=== PATIENT | male | born 1995 | race Caucasian/White ===

== ENCOUNTER 2017-01-19 06:08 | Inpatient (IN) ==
[2017-01-19] MEDS ORDERED: ONDANSETRON 4 MG/2 ML VIAL IV STA (06:47)
[2017-01-19] MEDS ORDERED: HYDROmorphone 2 MG/1 ML VIAL IV STA (06:47)
--- NOTE | 2017-01-19 07:02 | EKG Report ---
Stationary ECG Study [facility] ER Test Date: 01/19/2017 6:59:49 AM Pat Name: CAMDEN EID Department: Room: Gender: M On Site Coordinator: : 1995 Requested by: Ifeoma Andrade Order Number: [id number] Reading MD: ROEL CABALLERO Intervals [place] Rate: 54 P: 50 [place]: 150 QRS: 69 QRSD: 108 T: 39 QT: 428 QTc: 414 Interpretive Statements SINUS BRADYCARDIA POSSIBLE RIGHT VENTRICULAR CONDUCTION DELAY PEAKED T WAVES OF UNKNOWN SIGNIFICANCE Electronically Signed On 01-19-17 16:16:01 CDT by ROEL CABALLERO [email or web address]
[2017-01-19] MEDS ORDERED: ONDANSETRON 4 MG/2 ML VIAL ONE (07:14)
[2017-01-19] MEDS ORDERED: HYDROmorphone 2 MG/1 ML VIAL ONE (07:14)
[2017-01-19 07:17] LABS: Basophils # 0.1 10*3/uL (0.0-0.2); Basophils % 0.5 % (0.0-0.8); Eosinophils # 0.1 10*3/uL (0.0-0.87); Eosinophils % 0.5 % (0.00-10.9); Hematocrit 45.8 VOL% (42.0-52.0); Hemoglobin 15.9 GM/DL (14.0-18.0); Immature Granulocytes % 0.3 %; Immature Granulocytes Absolute 0.06 #; Lymphocytes # 1.9 10*3/uL (1.4-4.0); Lymphocytes % 10.2 % (21.2-54.2); Mean Corpuscular HGB Conc 34.7 GM/DL (32-36); Mean Corpuscular Hemoglobin 28 PG (27-34); Mean Corpuscular Volume 80.1 FL (87-102); Mean Platelet Volume 9.5 FL (9.6-12.0); Monocytes # 1.2 10*3/uL (0.11-0.8); Monocytes % 6.3 % (1.7-12.7); Neutrophils # 15.2 10*3/uL (1.4-7.4); Neutrophils % 82.2 % (38.7-73.9); Platelet Count 334 T/CUMM (130-400); Red Blood Count 5.72 MC/CUMM (3.8-5.5); Red Cell Distribution Width 12.8 % (9.3-17.3); White Blood Count 18.5 T/CUMM (4-12)
[2017-01-19 07:19] LABS: Apearance,Urine CLEAR (Clear); Bilirubin,Urine Negative (Negative); Blood, Urine Small mg/dL (Negative); Glucose,Urine (UA) Negative (Negative); Ketones,Urine Negative (Negative); Mucus,Urine Occasional /LPF (Occasional); Nitrite,Urine Negative (Negative); Protein,Urine Negative; RBC,Urine <1 /HPF (0-4); Urine Color Yellow (Yellow); Urine Specific Gravity 1.023 (1.001-1.035); Urine Urobilinogen < 2.0 EU/DL (0.2-1.0); WBC,Urine <1 /HPF (0-6)
[2017-01-19] MEDS ORDERED: cefTRIAXone 1,000 MG in SODIUM CHLORIDE 0.9% 100 ML IV STA (07:28)
--- NOTE | 2017-01-19 07:31 | Emergency Department Note ---
Anastasia Magallanes Brittany, am scribing for, and in the presence of, Ifeoma Andrade DO 06: 48. IRaymond Debra, DO, personally performed the services described in this documentation, ascribed by Gabriella Oconnor in my presence, and it is both accurate and complete 731 . Arrival - Arrival Chief Complaint: Abdominal / Flank Pain Stated Complaint: back/upper stomach cramps ED Nursing Triage Note: Patient to triage with c/o ABD/back pain that started around 0500 this morning and woke him from his sleep. Patient c/o increased belching and has dry heaved. Patient was in [facility] 2 weeks ago and was diagnosed with gastroenteritis and has been taking ABX but patient states this pain feels different. Mode of Arrival: Ambulatory Limitations: No Limitations Source: Patient Time Seen by Provider: 01/19/17 06:38 - History of Present Illness HPI Narrative: This is sa 21 y/o white male,who presents to the ED with c/o abdominal pain which started at 0500 this morning. He states he was awoken from sleep when the pain started. He states the pain radiates into his back. He denies a fever, chills, nausea, vomiting or SOB. He states he ate at [employer] last night and had a burger and then ate chicken afterwards. He denies any positional movement relief. He denies any increasing pain factors. Pt was in [facility] 2 weeks ago and was Dx with Gastroenteritis and has been taking ABX, although upon exam pt and family members did not mention this. Pt has no other complaints/pain in the ED at this time. Pt denies a PMHx. Pt denies a surgical Hx. Pt denies a family medical Hx. Pt denies a social Hx. Onset (ago): hour(s) (Started at 0500 this morning) Consistency: constant Severity: moderate Allergies/Adverse Reactions: Allergies Allergy/AdvReac Type Severity Reaction Status Date / Time No Known Allergies Allergy Unverified 01/19/17 06:19 Review of System - Review of System 12 point system: reviewed and no additional remarkable complaints except as stated - Review of System Constitutional: Absent: chills, fever Cardiovascular: Absent: dyspnea on exertion Gastrointestinal: Present: abdominal pain. Absent: nausea, vomiting Medical,Surgical,& Family Hx - Social History Smoking Status: Never smoker Frequency of Alcohol Use: None Type of Drug Use: None Exam Vital Signs: Vital Signs Temperature 97.5 F L 01/19/17 06:55 Pulse Rate 62 01/19/17 09:00 Respiratory Rate 14 01/19/17 08:30 Blood Pressure 121/60 01/19/17 09:00 O2 Sat by Pulse Oximetry 96 01/19/17 09:00 - General General appearance: alert, in no apparent distress - Head Head exam: Present: atraumatic, normocephalic, normal inspection - Eye Eye exam: Present: normal appearance, PERRL, EOMI. Absent: scleral icterus, conjunctival injection, nystagmus, miosis, mydriasis - ENT ENT exam: Present: normal exam, normal oropharynx, mucous membranes moist, TM's normal bilaterally, normal external ear exam - Neck Neck exam: Present: normal inspection, full ROM, trachea midline. Absent: tenderness, meningismus, lymphadenopathy, thyromegaly - Chest Chest inspection: Present: symmetric chest wall rise, tenderness (Left chest tenderness). Absent: rash, abscess - Respiratory Respiratory exam: Present: normal lung sounds bilaterally. Absent: prolonged expiratory phase, rales, respiratory distress, rhonchi, stridor, wheezes - Cardiovascular Cardiovascular exam: Present: regular rate, normal rhythm, normal heart sounds. Absent: murmur, rubs, gallop, clicks, JVD - Abdominal Exam Abdominal exam: Present: soft, normal bowel sounds. Absent: distention, tenderness, guarding, rebound, rigidity - Rectal Exam Rectal exam: Present: deferred - Extremities Exam Extremities exam: Present: normal inspection, full ROM, normal capillary refill. Absent: tenderness, pedal edema, joint swelling, calf tenderness - Back Exam Back exam: Present: tenderness (Diffsue upper back tenderness starting at T8 and goes to T10). Absent: muscle spasm, rashes - Neurological Exam Neurological exam: Present: alert, oriented X3, CN II-XII intact. Absent: motor sensory deficit - Psychiatric Psychiatric exam: Present: normal affect, normal mood. Absent: depressed, agitated, anxious, flat affect, manic - Skin Skin exam: Present: warm, dry, intact, normal color. Absent: rash, cyanosis, diaphoresis, erythema, pallor, mottled Course Course Narrative: spoke with Yocasta, who will admit pt to hospitalist Results - Labs CBC & BMP: 01/19/17 06:58 01/19/17 06:58 Lab Results: I have reviewed the patients labs Labs: Laboratory Tests 01/19/17 01/19/17 06:58 06:58 WBC 18.5 H RBC 5.72 H Hgb 15.9 Hct 45.8 MCV 80.1 L MCH 28 MCHC 34.7 RDW 12.8 Plt Count 334 MPV 9.5 L Neut % (Auto) 82.2 H Lymph % (Auto) 10.2 L [place] % (Auto) 6.3 Eos % (Auto) 0.5 Baso % (Auto) 0.5 Neut # (Auto) 15.2 H Lymph # (Auto) 1.9 [place] # (Auto) 1.2 H Eos # (Auto) 0.1 Baso # (Auto) 0.1 Immature Gran % 0.3 Nucleated RBC % 0.0 Immature Gran # 0.06 Nucleated RBCs # 0.00 Immature Plt Fraction 0.0 Urine Color Yellow Urine Appearance Clear Urine pH 6.0 Ur Specific [place] 1.023 Urine Protein Negative Urine Glucose (UA) Negative Urine Ketones Negative Urine Blood Small Urine Nitrate Negative Urine Bilirubin Negative Urine Urobilinogen < 2.0 H Urine Leukocytes Negative Urine RBC <1 Urine WBC <1 Urine Mucus Occasional Ur Culture Indicated? Not indicated - EKG EKG results: interpreted by LEYDA FERNANDEZ - Diagnostic Findings Procedure: Chest x-ray: report reviewed by me (Nothing acute. ), CT Abdomen and Pelvis: report reviewed by me (Borderline to minimally enlarged ileocolic as well as mesenteric root lymph nodes are persent. This finding alone is a nonspecific finding and could reflect evidence of mesenteric adenitis as a diagnosis of exclusion. ) Disposition Clinical Impression: Mesenteric adenitis Case discussed with: patient, patient's family Disposition: Still a Patient Condition: Stable Time of Disposition: 09:29
[2017-01-19] MEDS ORDERED: cefTRIAXone 1,000 MG VIAL ONE (07:37)
[2017-01-19] MEDS ORDERED: SODIUM CHLORIDE 0.9% 100 ML IV ONE (07:37)
[2017-01-19 07:42] LABS: Albumin 4.2 G/DL (3.4-5.0); Bilirubin,Total 1.9 MG/DL (0.2-1.0); Calcium 9.8 MG/DL (8.5-10.1); Osmolality,Calculated 277.5 MOS/KG (273-304); Potassium 3.8 MMOL/L (3.5-5.1); Total Protein 7.6 G/DL (6.4-8.3)
[2017-01-19 08:18] LABS: Lactic Acid 1.3 MMOL/L (0.4-2.0)
--- NOTE | 2017-01-19 08:31 | CT Report ---
CT abdomen pelvis wo/w con Indication: Generalized abdominal pain. Comparison: None. Technique: CT of the abdomen and pelvis was performed prior to and following the administration of intravenous contrast. The CT examination was performed using one or more of the following dose reduction techniques: Automatic exposure control, adjustment of the mA and kV according to patient size, or iterative reconstruction techniques. Findings: Lower chest: No acute findings are noted within the lower chest. Liver: No mass lesions or acute findings are demonstrated. Gallbladder: The gallbladder demonstrates no significant abnormality. Spleen: Spleen is normal in size and appearance. Pancreas: Pancreas demonstrates no significant abnormality. Adrenal glands: The adrenal glands demonstrate no significant abnormalities. Kidneys: The kidneys demonstrate no significant abnormalities. Aorta: The aorta demonstrates no significant abnormality. Inferior vena cava: The inferior vena cava demonstrates no significant abnormality. Lymph nodes: Enlarged ileocolic lymph nodes are demonstrated. The largest of these measures 8.5 mm axial image #113 and 7.2 mm axial image #108. Additional somewhat more cephalad lymph nodes measuring 7.4 mm short axis dimension are present on image #99. Additional minimal adenopathy of the mesenteric root is present. Stomach and bowel: The stomach, duodenum, small bowel, appendix, and large bowel demonstrate no significant abnormalities. Intrapelvic contents: Demonstrate no significant abnormalities. Skeletal structures: The imaged bony structures of the lumbar spine, lower chest, pelvis, proximal femurs demonstrate no acute findings. Soft tissues and muscular structure of the body wall: Demonstrate no significant abnormalities. Impression: 1. Borderline to minimally enlarged ileocolic as well as mesenteric root lymph nodes are present. This finding alone is a nonspecific finding and could reflect evidence of mesenteric adenitis as a diagnosis of exclusion. 01/19/2017 8:25 AM PROCEDURE INTERPRETED AT [facility] DEPARTMENT OF RADIOLOGY Final Report Signed by: Dr. Alejandro Roa
--- NOTE | 2017-01-19 08:38 | XRay Report ---
XR chest 2V Indication: Back and chest pain. Comparison: None. Technique: PA and lateral chest x-ray was performed. Findings: Heart size, mediastinal contour, and hilar structures demonstrate no significant abnormalities. The lung parenchyma is clear. Bones and soft tissues demonstrate no significant abnormalities. Impression: 1. No active cardiopulmonary disease. 01/19/2017 8:35 AM PROCEDURE INTERPRETED AT [facility] DEPARTMENT OF RADIOLOGY Final Report Signed by: Dr. Alejandro Roa
[2017-01-19] MEDS ORDERED: ONDANSETRON 4 MG/2 ML VIAL IV PRN (09:16)
[2017-01-19] MEDS ORDERED: MORPHINE 2 MG/1 ML SYRINGE IV PRN (09:16)
[2017-01-19] MEDS ORDERED: POTASSIUM CHLORIDE RIDER 10 MEQ in PREMIX 1 EACH IV PRN (09:16)
[2017-01-19] MEDS ORDERED: MAGNESIUM SULF RIDER 4 GM in PREMIX 1 EACH IV PRN (09:16)
[2017-01-19] MEDS ORDERED: MAGNESIUM SULF RIDER 2 GM in PREMIX 1 EACH IV PRN (09:16)
[2017-01-19 09:42] LABS: Phosphorous 2.6 MG/DL (2.5-4.9)
[2017-01-19] MEDS ORDERED: ACETAMINOPHEN 325 MG TABLET PO PRN (09:54)
--- NOTE | 2017-01-19 10:08 | Hospitalist History & Physical ---
Assessment and Plan - Time spent with patient Time spent with patient: Greater than 30 minutes (1) Mesenteric adenitis Status: Acute Assessment and plan: Admit to Hospital Services. Start IV fluids. Start Antibiotic therapy. Order PRN medications pain management. Anti-nausea medications ordered for developed any developing of nausea. Will repeat labs in a.m. Will discuss further with Dr Trevizo for recommendations of care. Current Visit: Yes History of Present Illness Chief complaint: abdominal pain generalized History of present illness: Mr. Yee is a pleasant 21 year old white male presented to [facility] ED for further evaluation of generalized abdominal pain with onset around 0500 this a.m. without vomiting. PMHx significant for recent (2 weeks ago) visit to [facility] and was diagnosed with Gastroenteritis and placed on antibiotic therapy, almost completed (1 tablet left to take). He reports being awoken this a.m. with pain more upper left quadrant area but generalized and radiated to the back. He denies fever, chills, vomiting or shortness of breath. He denies an social history. He denies surgical history. ED labs completed and noted WBC 18.5 and total bilirubin 1.90, all other labs unremarkable. Urine negative. CXR Impression: No active cardiopulmonary disease and CT of ABD/ Pelvis completed: Impression: Borderline to minimally enlarged ileocolic as well as mesenteric root lymph nodes are present. This finding alone is a nonspecific finding and could reflect evidence of mesenteric adenitis as a diagnosis of exclusion. NO PCP. After discussion with Dr Andrade in the ED and Dr Trevizo with Hospitalist Medicine, It was agreed to admit patient and further evaluate and treat. No home medications other than the Cipro he was on (almost completed/ 1 tablet left to take) for reconciliation. Home Medications Medication Instructions Recorded Confirmed Type Ciprofloxacin HCl [Ciprofloxacin 500 mg PO Q12H 01/19/17 01/19/17 History Tab] Allergies Allergy/AdvReac Type Severity Reaction Status Date / Time No Known Allergies Allergy Unverified 01/19/17 06:19 Medical,Surgical,& Family Hx - Social History Smoking Status: Never smoker Frequency of Alcohol Use: None Type of Drug Use: None Marital Status: Single Lives With:: Parent Functional capacity: independent ambulation Review of systems: ROS completed and pertinent negatives and positives in HPI. Exam - Constitutional Vitals: Period Temp Pulse Resp BP Sys/Maldonado Pulse Ox Last 24 Hr 97.5 F-97.5 F 55-72 14-20 113-147/58-82 96-99 General appearance: normal weight, no acute distress - Head Head exam: Present: normal inspection - Eye Eye exam: Present: EOMI Pupils: Present: RENU - Neck Neck exam: Present: normal inspection - Respiratory Respiratory exam: Present: clear to auscultation bilaterally. Absent: wheezes - Cardiovascular Cardiovascular exam: Present: regular rate and rhythm - GI/Abdominal GI/Abdominal exam: Present: normal bowel sounds, tenderness (slight tenderness all over but more upper left quadrant), soft. Absent: firm, guarding, rebound - Extremities Exam Extremities exam: Present: full ROM. Absent: edema - Neurological Exam Neurological exam: Present: alert, oriented X3 - Psychiatric Psychiatric exam: Present: normal affect, normal mood. Absent: agitated, anxious - Skin Skin exam: Present: normal color, warm, dry Results - Labs CBC & BMP: 01/19/17 06:58 01/19/17 06:58 Lab Results: I have reviewed the past 24 hour labs - EKG EKG results: interpreted by ERMD - Diagnostic Findings Procedure: Chest x-ray: report reviewed by me (no acute cardiopulmonary disease) , CT Abdomen and Pelvis: report reviewed by me (borderline to minimally enlarged ileocolic asa well as mesenteric root lymph nodes are present, this finding alone is a nonspecific finding and could reflect evidence of mesenteric adenitis as a diagnosis of exclusion)
[2017-01-19] MEDS: SODIUM CHLORIDE 0.9% 1,000 ML IV SCH ×2 (11:07→22:06)
[2017-01-19] MEDS: CIPROFLOXACIN INJ 400 MG in PREMIX 1 EACH IV SCH ×2 (11:10→22:06)
[2017-01-19] MEDS: metroNIDAZOLE INJ 500 MG in PREMIX 1 EACH IV SCH ×2 (12:38→17:06)
--- NOTE | 2017-01-19 13:47 | Gastrointestinal Consult Note ---
Assessment and Plan (1) Gastroenteritis presumed infectious Status: Acute Assessment and plan: The patient has had trip to [facility] and has likely ingested any 1 of a number of organisms that would produce the symptoms that he is having currently. I see that stool cultures and standard C. difficile have been checked along with fecal leukocytes. I will go ahead and write for ova and parasite checks 3 to increase her yield. The patient sounds like they were started on Cipro but never Flagyl. Agree with use of both these medications although I personally would use Augmentin as I do not believe he is seen beta- lactam resistant penicillin yet. He is already failed a course of Cipro from what I gather. I will check the patient's stool for Entamoeba histolytica/ worms and other parasites. We will check a serology for Entamoeba histolytica and watch the patient's indirect bilirubin to make sure this is elevated. Patients with E histolytica can develop liver abscesses. I will hold off on making the diagnosis of mesenteric adenitis as this usually implies that there are multiple lymph nodes greater than 1 cm in size and from what I read in the CT scan this patient's lymph nodes are all subcentimeter. Unfortunately have little to offer the patient in order to make him feel better. This is simply infectious disease process that he is going to have to get better on his own from. He does not have evidence of inflammatory bowel disease on CT scanning, although we may check him for this down the road if he continues to have problems despite current regimen. Current Visit: Yes (2) Diarrhea Status: Acute Assessment and plan: Patient's diarrhea is really quite low-grade. Again we await the ova and parasites as well as the addition of Flagyl to the patient's medication regimen. Again I would strongly consider using Augmentin instead of Cipro as this has failed already. Patient may benefit from probiotics once the initial illness has been treated. This may help keep him from lapsing over to diarrhea predominant irritable bowel syndrome. Once infectious etiologies are ruled out patient may benefit from Colestid or other bowel thickening agents. Current Visit: Yes History of Present Illness Chief complaint: Nausea, abdominal pain, mild diarrhea History of present illness: Mr. Yee is a 21 year old male who was on a mission trip to [facility] where he ate the local cuisine along with multiple friends. He was the only person to come back sick he developed diarrhea starting approximately 2 days before his departure from this country and started having diarrhea which did represent a change in his bowel habits. Patient usually has stools every other day and now is having 2-3 loose bowel movements per day without blood. He does have his periumbilical tenderness. Patient was treated with 3 days worth of antibiotics initially at the host country in [facility]--he does not know what these antibiotics were. He subsequently became sick for another 1 week and was given some Cipro upon his return after seeing a second physician. The periumbilical/left lower quadrant pain was rated as a 6 out of 10 in intensity without blood or mucus but as his symptoms persist presents to the emergency room for potential IV antibiotic therapy. A CT scan done here is completely normal except for multiple subcentimeter lymph nodes clustered around the right colic region. There does not appear to be any gross evidence of inflammatory bowel disease based on CT scanning. The patient's white blood cell count is up to 18.5 K and his bilirubin is increased to 1.9 with the remaining liver function tests being within normal limits. This latter finding is suspicious for Gilbert's disease. He is able to eat he is otherwise not requiring hospitalization. Right now his pain is nearly gone. Although he is nauseated does not have vomiting fevers or chills, he denies drinking heavily, does not use a lot of anti-inflammatories. Home Medications Medication Instructions Recorded Confirmed Type Ciprofloxacin HCl [Ciprofloxacin 500 mg PO Q12H 01/19/17 01/19/17 History Tab] Allergies Allergy/AdvReac Type Severity Reaction Status Date / Time No Known Allergies Allergy Verified 01/19/17 10:52 Medical,Surgical,& Family Hx - Social History Smoking Status: Never smoker Frequency of Alcohol Use: None Type of Drug Use: None Review of systems: Constitutional: Denies fever, chills, delete and vomiting, but does have nausea Eyes: Denies dry eyes, and scleral icterus HENT: Denies headaches Cardiovascular: Denies acute chest pain and claudication Respiratory: Denies shortness of breath, wheezing, and difficulty breathing, denies cough Gastrointestinal: As noted in the HPI Genitourinary: Denies dysuria and hematuria Neurologic: Denies vision loss, and loss of sensation Musculoskeletal: Denies joint swelling, joint stiffness, and muscular weakness Psychiatric: Denies depression and radha symptoms Heme-Lymph: Denies easy bruising, lymph node enlargement or tenderness, night sweats, excessive bleeding Allergies-immunologic: Denies pruritus and rhinorrhea Exam - Constitutional Vitals: Period Temp Pulse Resp BP Sys/Maldonado Pulse Ox Last 24 Hr 97.1 F-97.5 F 52-72 14-20 108-147/58-82 96-99 Exam: Constitutional: Well-developed, well-nourished, alert, and in no acute distress Head and face: Head: Normocephalic atraumatic Eyes: Conjunctiva without injection, no gross scleral icterus, pupils equal and round bilaterally Ears: Intact to conversation in both ears Nose: External appearance is normal, nares patent Mouth: Oral mucous membranes moist without erythema dentition noted to be without erosion Neck: Normal appearance, no masses or tenderness, trachea midline Thyroid: Gland midline and appropriate size for age Respiratory: Normal respiratory effort, clear to auscultation without wheezes, rhonchi or rales Cardiovascular: Regular rate and rhythm, normal S1, S2, the exam is without rubs, murmurs or gallops. Gastrointestinal: Mild periumbilical tenderness to palpation, normal active bowel sounds, tone normal without rigidity or guarding, no masses present , no hepatomegaly, no spleen tip felt. No rectal exam obtained. Lymphatic: Neck without adenopathy, axilla without lymphadenopathy present Musculoskeletal: Right and left lower extremities without evidence of edema Skin and subcutaneous tissue: No rashes or ulcerations noted, normal skin turgor, digits and nails without clubbing/cyanosis/deformities. Neurologic: The patient is grossly oriented to person place and time, cranial nerves show tongue movements are normal with normal tongue extrusion midline, light touch sensation is intact. Psychiatric: No hallucinations or delusions are present, does not appear depressed Results - Labs CBC & BMP: 01/19/17 06:58 01/19/17 06:58
--- NOTE | 2017-01-19 14:45 | XRay Report ---
XR KUB Indication: Abdominal pain. Comparison: None. Technique: Supine AP image of the abdomen was obtained. Findings: Lung bases are clear. There is no evidence of organomegaly. Bowel gas pattern is unremarkable. Renal contours are bilaterally symmetric. Bones and soft tissues demonstrate no significant abnormalities. Contrast is present within the urinary bladder. Impression: 1. No active process is demonstrated within the abdomen or pelvis. 01/19/2017 2:42 PM PROCEDURE INTERPRETED AT [facility] DEPARTMENT OF RADIOLOGY Final Report Signed by: Dr. Alejandro Roa
[2017-01-20] MEDS: metroNIDAZOLE INJ 500 MG in PREMIX 1 EACH IV SCH ×4 (00:48→18:29)
[2017-01-20 06:25] LABS: Basophils # 0.1 10*3/uL (0.0-0.2); Basophils % 1.5 % (0.0-0.8); Eosinophils # 0.1 10*3/uL (0.0-0.87); Eosinophils % 1.8 % (0.00-10.9); Hematocrit 43.5 VOL% (42.0-52.0); Hemoglobin 14.7 GM/DL (14.0-18.0); Immature Granulocytes % 0.3 %; Immature Granulocytes Absolute 0.02 #; Lymphocytes # 1.7 10*3/uL (1.4-4.0); Lymphocytes % 26.9 % (21.2-54.2); Mean Corpuscular HGB Conc 33.8 GM/DL (32-36); Mean Corpuscular Hemoglobin 28 PG (27-34); Mean Corpuscular Volume 81.5 FL (87-102); Mean Platelet Volume 9.6 FL (9.6-12.0); Monocytes # 0.7 10*3/uL (0.11-0.8); Monocytes % 11.6 % (1.7-12.7); Neutrophils # 3.6 10*3/uL (1.4-7.4); Neutrophils % 57.9 % (38.7-73.9); Platelet Count 267 T/CUMM (130-400); Red Blood Count 5.34 MC/CUMM (3.8-5.5); Red Cell Distribution Width 12.9 % (9.3-17.3); White Blood Count 6.1 T/CUMM (4-12)
[2017-01-20 06:55] LABS: Albumin 3.5 G/DL (3.4-5.0); Bilirubin,Total 2.5 MG/DL (0.2-1.0); Calcium 9.3 MG/DL (8.5-10.1); Osmolality,Calculated 279.3 MOS/KG (273-304); Potassium 4.2 MMOL/L (3.5-5.1); Total Protein 6.5 G/DL (6.4-8.3)
[2017-01-20] MEDS: PANTOPRAZOLE 40 MG VIAL IV SCH (09:23)
[2017-01-20] MEDS: CIPROFLOXACIN INJ 400 MG in PREMIX 1 EACH IV SCH (09:28)
--- NOTE | 2017-01-20 09:45 | Hospitalist Progress Note ---
Assessment and Plan (1) Gastroenteritis presumed infectious Status: Acute Assessment and plan: We will follow Stool studies. Continue with IVF, IV antibiotics, pain meds and anti emetics. Follow GI's recommendations. Advance diet Possible dc in am. Current Visit: Yes (2) Diarrhea Status: Acute Assessment and plan: Improving. Follow stool studies.Continue current care Current Visit: Yes Hospitalist: Subjective Interval history: Patient seen this am. His symptoms have improved.BC- negative, we are awaiting stool studies.GI has seen and made some recommendations. Exam - Constitutional Vitals: Period Temp Pulse Resp BP Sys/Maldonado Pulse Ox Last 24 Hr 96.9 F-97.5 F 54-62 16-20 108-132/50-72 96-99 General appearance: no acute distress - Head Head exam: Present: normal inspection - ENT ENT exam: Present: normal exam - Respiratory Respiratory exam: Present: clear to auscultation bilaterally - Cardiovascular Cardiovascular exam: Present: regular rate and rhythm - GI/Abdominal GI/Abdominal exam: Present: normal bowel sounds - Extremities Exam Extremities exam: Present: normal inspection - Neurological Exam Neurological exam: Present: alert, oriented X3 Results - Labs CBC & BMP: 01/20/17 05:56 01/20/17 05:56 Lab Results: I have reviewed the past 24 hour labs
[2017-01-20] MEDS: SODIUM CHLORIDE 0.9% 1,000 ML IV SCH ×3 (12:00→22:27)
--- NOTE | 2017-01-20 18:42 | Gastrointestinal Progress Note ---
Assessment and Plan (1) Gastroenteritis presumed infectious Status: Acute Assessment and plan: The patient has had trip to [facility] and has likely ingested any 1 of a number of organisms that would produce the symptoms that he is having currently. I see that stool cultures and standard C. difficile have been checked along with fecal leukocytes. I will go ahead and write for ova and parasite checks 3 to increase her yield. The patient sounds like they were started on Cipro but never Flagyl. Agree with use of both these medications although I personally would use Augmentin as I do not believe he is seen beta- lactam resistant penicillin yet. He is already failed a course of Cipro from what I gather. I will check the patient's stool for Entamoeba histolytica/ worms and other parasites. We will check a serology for Entamoeba histolytica and watch the patient's indirect bilirubin to make sure this is elevated. Patients with E histolytica can develop liver abscesses. I will hold off on making the diagnosis of mesenteric adenitis as this usually implies that there are multiple lymph nodes greater than 1 cm in size and from what I read in the CT scan this patient's lymph nodes are all subcentimeter. Unfortunately have little to offer the patient in order to make him feel better. This is simply infectious disease process that he is going to have to get better on his own from. He does not have evidence of inflammatory bowel disease on CT scanning, although we may check him for this down the road if he continues to have problems despite current regimen. 01/20/17--the patient is responding very well to antibiotic therapy and could likely be discharged tomorrow if he does fine with the switch over to oral medications tonight. Will switch the patient over from IV Cipro and Flagyl to oral regimen at this point. I will likely have to follow-up the above studies as an outpatient to see if these reveal a cause. Of note the Flagyl is going to treat amebiasis if this is present. I suspect very strongly that he will be able go home tomorrow. I would give him at least another 10 days worth of treatment. Current Visit: Yes (2) Diarrhea Status: Acute Assessment and plan: Patient's diarrhea is really quite low-grade. Again we await the ova and parasites as well as the addition of Flagyl to the patient's medication regimen. Again I would strongly consider using Augmentin instead of Cipro as this has failed already. Patient may benefit from probiotics once the initial illness has been treated. This may help keep him from lapsing over to diarrhea predominant irritable bowel syndrome. Once infectious etiologies are ruled out patient may benefit from Colestid or other bowel thickening agents. 01/20/17--Patient appears to be doing adequately at this point. He can follow- up with me in clinic on a as needed basis depending on the symptoms. His infectious process should respond quite nicely to the antibiotics written. Current Visit: Yes Gastroenterology - PN: Subj Interval history: Stool cultures still not particularly helpful. These will probably take days to weeks to come back-- but the information may be helpful in retrospect. His white blood cell count is dropped from 18,000 to 6000 in 1 day and he feels much better. He has been advanced to a solid diet and is eating this without significant pain. Diarrhea continues a low grade but is likely secondary to clear liquid intake recently. If he is doing well tomorrow he can likely be discharged. Exam (Progress Note) - Constitutional Vitals: Period Temp Pulse Resp BP Sys/[place] Pulse Ox Last 24 Hr 96.9 F-97.5 F 54-66 18-20 119-139/50-73 96-98 General appearance: no acute distress - Head Head exam: Present: normocephalic - Eye Eye exam: Present: EOMI Pupils: Present: RENU - Respiratory Respiratory exam: Present: clear to auscultation bilaterally. Absent: rhonchi, stridor, wheezes - Cardiovascular Cardiovascular exam: Present: regular rate and rhythm - GI/Abdominal GI/Abdominal exam: Present: normal bowel sounds, soft. Absent: ascites, distended, guarding, tenderness, rebound - Extremities Exam Extremities exam: Present: normal inspection - Neurological Exam Neurological exam: Present: alert, oriented X3. Absent: altered - Psychiatric Psychiatric exam: Present: normal affect, normal mood - Skin Skin exam: Present: warm Results - Labs CBC & BMP: 01/20/17 05:56 01/20/17 05:56
[2017-01-20] MEDS: CIPROFLOXACIN 500 MG TABLET PO SCH (22:26)
[2017-01-20] MEDS: metroNIDAZOLE 500 MG TABLET PO SCH (22:26)
[2017-01-21 05:05] LABS: Basophils # 0.1 10*3/uL (0.0-0.2); Basophils % 1.1 % (0.0-0.8); Eosinophils # 0.2 10*3/uL (0.0-0.87); Eosinophils % 2.3 % (0.00-10.9); Hematocrit 41.7 VOL% (42.0-52.0); Hemoglobin 14.2 GM/DL (14.0-18.0); Immature Granulocytes % 0.3 %; Immature Granulocytes Absolute 0.02 #; Lymphocytes # 1.8 10*3/uL (1.4-4.0); Lymphocytes % 26.3 % (21.2-54.2); Mean Corpuscular HGB Conc 34.1 GM/DL (32-36); Mean Corpuscular Hemoglobin 28 PG (27-34); Mean Corpuscular Volume 80.8 FL (87-102); Mean Platelet Volume 9.9 FL (9.6-12.0); Monocytes # 0.6 10*3/uL (0.11-0.8); Monocytes % 8.4 % (1.7-12.7); Neutrophils # 4.1 10*3/uL (1.4-7.4); Neutrophils % 61.6 % (38.7-73.9); Platelet Count 326 T/CUMM (130-400); Red Blood Count 5.16 MC/CUMM (3.8-5.5); Red Cell Distribution Width 12.8 % (9.3-17.3); White Blood Count 6.7 T/CUMM (4-12)
[2017-01-21 05:20] LABS: Osmolality,Calculated 279.3 MOS/KG (273-304); Potassium 4.3 MMOL/L (3.5-5.1)
[2017-01-21] MEDS: SODIUM CHLORIDE 0.9% 1,000 ML IV SCH (06:37)
[2017-01-21] MEDS: CIPROFLOXACIN 500 MG TABLET PO SCH (08:45)
[2017-01-21] MEDS: PANTOPRAZOLE 40 MG VIAL IV SCH (08:46)
[2017-01-21] MEDS: metroNIDAZOLE 500 MG TABLET PO SCH (08:46)
--- NOTE | 2017-01-21 09:10 | Gastrointestinal Progress Note ---
Assessment and Plan (1) Gastroenteritis presumed infectious Status: Acute Assessment and plan: The patient has had trip to [facility] and has likely ingested any 1 of a number of organisms that would produce the symptoms that he is having currently. I see that stool cultures and standard C. difficile have been checked along with fecal leukocytes. I will go ahead and write for ova and parasite checks 3 to increase her yield. The patient sounds like they were started on Cipro but never Flagyl. Agree with use of both these medications although I personally would use Augmentin as I do not believe he is seen beta- lactam resistant penicillin yet. He is already failed a course of Cipro from what I gather. I will check the patient's stool for Entamoeba histolytica/ worms and other parasites. We will check a serology for Entamoeba histolytica and watch the patient's indirect bilirubin to make sure this is elevated. Patients with E histolytica can develop liver abscesses. I will hold off on making the diagnosis of mesenteric adenitis as this usually implies that there are multiple lymph nodes greater than 1 cm in size and from what I read in the CT scan this patient's lymph nodes are all subcentimeter. Unfortunately have little to offer the patient in order to make him feel better. This is simply infectious disease process that he is going to have to get better on his own from. He does not have evidence of inflammatory bowel disease on CT scanning, although we may check him for this down the road if he continues to have problems despite current regimen. 01/20/17--the patient is responding very well to antibiotic therapy and could likely be discharged tomorrow if he does fine with the switch over to oral medications tonight. Will switch the patient over from IV Cipro and Flagyl to oral regimen at this point. I will likely have to follow-up the above studies as an outpatient to see if these reveal a cause. Of note the Flagyl is going to treat amebiasis if this is present. I suspect very strongly that he will be able go home tomorrow. I would give him at least another 10 days worth of treatment. 01/21/17--patient feels fine today could likely be discharged home, would eat a low lactose diet for the next 7 days and take his antibiotics for at least the next 8 days. He has been switched over to Cipro and Flagyl orally. He can follow-up with me as needed. I will call him if any of these laboratories come back looking positive. Current Visit: Yes (2) Diarrhea Status: Acute Assessment and plan: Patient's diarrhea is really quite low-grade. Again we await the ova and parasites as well as the addition of Flagyl to the patient's medication regimen. Again I would strongly consider using Augmentin instead of Cipro as this has failed already. Patient may benefit from probiotics once the initial illness has been treated. This may help keep him from lapsing over to diarrhea predominant irritable bowel syndrome. Once infectious etiologies are ruled out patient may benefit from Colestid or other bowel thickening agents. 01/20/17--Patient appears to be doing adequately at this point. He can follow- up with me in clinic on a as needed basis depending on the symptoms. His infectious process should respond quite nicely to the antibiotics written. 01/21/17--Resolved. Current Visit: Yes Gastroenterology - PN: Subj Interval history: Eating well, no diarrhea, no abdominal pain, ready for discharge. Exam (Progress Note) - Constitutional Vitals: Period Temp Pulse Resp BP Sys/[place] Pulse Ox Last 24 Hr 97.0 F-97.3 F 52-84 18-20 118-139/57-73 96-98 General appearance: no acute distress - Eye Eye exam: Present: EOMI - Respiratory Respiratory exam: Present: clear to auscultation bilaterally - Cardiovascular Cardiovascular exam: Present: regular rate and rhythm - GI/Abdominal GI/Abdominal exam: Present: normal bowel sounds, soft. Absent: distended, tenderness, rebound - Neurological Exam Neurological exam: Present: alert, oriented X3 - Psychiatric Psychiatric exam: Present: normal affect, normal mood - Skin Skin exam: Present: warm Results - Labs CBC & BMP: 01/21/17 03:03 01/21/17 03:03
--- NOTE | 2017-01-21 09:28 | Discharge Summary ---
Hospital Course - Hospital Course Hospital Course: 21yr old with no significant medical history, not a known alcoholic, presents with generalized abdominal pain. He recently returned from a mission trip from [facility]. Family reports that he has also been having some diarrhoea since he got back and has been on some antibiotics. CT showed a non specific finding suggesting a mesenteric adenitis.He was admitted, started on IVF, IV Flagyl and Cipro. Stool studies was unremarkable. KUB showed no acute process..BC- negative.GI saw in consultation and they suggested to hold off on making the diagnosis of mesenteric adenitis as this usually implies that there are multiple lymph nodes greater than 1 cm in size and the CT scan this patient's lymph nodes are all subcentimeter.Patient's symptoms progressively improved, his WBC dropped, vitals remained stable. He is currently tolerating po. He will be going home on po Flagyl and Cipro to complete a 10day treatment.He will follow up with GI as outpt. - Time spent with patient Time with patient DS: Greater than 30 minutes (Time spent greater than 35mins) Diagnosis - Discharge Diagnosis (1) Gastroenteritis presumed infectious Status: Acute (2) Diarrhea Status: Acute Discharge Plan - Discharge Data Disposition: Disch To Home/Self Care Condition at Discharge: Stable Discharge Diet: advance to your usual diet - Discharge Medications New Ciprofloxacin Tab [Cipro Tab] 500 mg PO Q12HR #20 tablet Acetaminophen Tab [Tylenol Tab] 650 mg PO Q4H PRN tablet PRN Reason: Fever, Headache, Mild Pain metroNIDAZOLE TAB [Flagyl Cap/Tab] 500 mg PO TID #20 tablet No Action Ciprofloxacin HCl [Ciprofloxacin Tab] 500 mg PO Q12H - Follow Up or Referral - Forms/Instructions Additional Discharge Instructions: Follow with GI in 1week Exam - Constitutional Vitals: Period Temp Pulse Resp BP Sys/[place] Pulse Ox Last 24 Hr 97.0 F-97.3 F 52-84 18-20 118-139/57-73 96-98 General appearance: no acute distress - Head Head exam: Present: normal inspection - Respiratory Respiratory exam: Present: clear to auscultation bilaterally - Cardiovascular Cardiovascular exam: Present: regular rate and rhythm - GI/Abdominal GI/Abdominal exam: Present: normal bowel sounds - Extremities Exam Extremities exam: Present: normal inspection Discharge Results Procedures and tests throughout hospitalization: Pending Orders 01/19/17 07:40 Blood Culture Stat 01/19/17 11:24 Stool Culture/Campy Routine Stool Culture/Campy/Yersinia Routine Stool Culture/Yersinia Routine 01/19/17 12:08 Occult Blood, Stool Stat Stool Culture Stat 01/19/17 21:00 Parasitic Examination Routine Parasitic Examination Routine Parasitic Examination Stat Labs on day of discharge: Labs from last 24 hours 01/21/17 01/21/17 03:03 03:03 WBC 6.7 RBC 5.16 Hgb 14.2 Hct 41.7 L MCV 80.8 L MCH 28 MCHC 34.1 RDW 12.8 Plt Count 326 D MPV 9.9 Neut % (Auto) 61.6 Lymph % (Auto) 26.3 [place] % (Auto) 8.4 Eos % (Auto) 2.3 Baso % (Auto) 1.1 H Neut # (Auto) 4.1 Lymph # (Auto) 1.8 [place] # (Auto) 0.6 Eos # (Auto) 0.2 Baso # (Auto) 0.1 Immature Gran % 0.3 Nucleated RBC % 0.0 Immature Gran # 0.02 Nucleated RBCs # 0.00 Immature Plt Fraction 0.0 Sodium 141 Potassium 4.3 Chloride 106 Carbon Dioxide 29 Anion Gap 10.3 BUN 12 Creatinine 0.90 GFR Calculation 163 BUN/Creatinine Ratio 13.00 Glucose 88 Calculated Osmolality 279.3 Calcium 9.0 Preliminary micro results at discharge 01/19/17 07:40 Blood Culture - Preliminary Blood No growth at 1 day 01/19/17 07:40 Blood Culture - Preliminary Blood No growth at 1 day DS: Provider Date of admission: 01/19/17 09:17 Primary care physician: . No PCP Attending physician on admission: Juliana Escalante CNP Discharging clinician: Janina Trevizo MD
[2017-01-21 11:51] VITALS: BP 149/98
== END 2017-01-21 11:50 | disposition home or self-care (01) | DRG 392 ==
LOC: N.ED 06:08 → SUATTDRO 09:17 → N.EDINP 09:17 → N.2E 09:51
PROVIDERS: ADMIT Nurse Practitioner; ATTEND Internal Medicine